=== PATIENT | female | born 1985 | race Caucasian/White ===

== ENCOUNTER 2022-12-29 12:17 | Outpatient (CLI) | payer OTHER, SELFPAY | END 2022-12-29 12:18 | disposition home or self-care (01) | LOC: LKVREF 12:19 | PROVIDERS: PCP Physician Assistant Medical; Visit Provider Physician Assistant Medical | DX: F98.8 Other specified behavioral and emotional disorders with onset usually occurring in childhood and adolescence (principal); R79.89 Other specified abnormal findings of blood chemistry | CPT/HCPCS: 80306 ==

== ENCOUNTER 2023-06-06 10:20 | Outpatient (CLI) | payer OTHER, SELFPAY | END 2023-06-06 10:21 | disposition home or self-care (01) | LOC: LKVREF 10:21 | PROVIDERS: PCP Physician Assistant Medical; Visit Provider Physician Assistant Medical | DX: Z01.818 Encounter for other preprocedural examination (principal) | CPT/HCPCS: 80048 ==

== ENCOUNTER 2024-07-19 10:19 | Outpatient (CLI) | payer BC, SELFPAY ==
--- OUTSIDE RECORDS SUMMARY | 2024-07-19 10:21 | XMS_ITS | Encounter Summary ---
Author Organization [facility] Address [address] [place] [id number] Care Team Providers Care Oncology Pharmacist Name Role Phone Jocelyne Alvarado Primary Care Provider [phone] Encounter Details Date Type Department Care Team (Latest Contact Info) Description 05/23/2024 Travel Social History Tobacco Use Types Packs/Day Years Used Date Smoking Tobacco: Never Smokeless Tobacco: Never Alcohol Use Standard Drinks/Week Comments Yes 0 (1 standard drink = 0.6 oz pur e alcohol) socially Comments No Sex and Gender Information Value Date Recorded Sex Assigned at Not on file Legal Sex Female 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
--- OUTSIDE RECORDS SUMMARY | 2024-07-19 10:21 | XMS_ITS | Clinical Summary ---
Author Organization [facility] Address [address] [place] [id number] Care Team Providers Care Gluing Pressman Name Role Phone Jocelyne Alvarado Primary Care Provider [phone] Allergies Active Allergy Reactions Criticality Noted Date Comments Cytarabine Anaphylaxis High 07/19/2006 Cefaclor Rash Low 07/19/2006 Medications ibuprofen (ADVIL,MOTRIN) 800 MG tabletIndicatio ns:Spontaneous vaginal delivery Take 1 tablet by mouth every 8 hours as needed for pain. 30 tablet 1 2 Active Additional Information Patient not taking.Reported on 10/25/2017 methylphenidate ER (CONCERTA) 54 MG CR tablet Take by mouth daily Active Active Problems Problem Noted Date Diagnosed Date Labor and delivery indication for care or interv ention 07/05/2012 CARDIOVASCULAR SCREENING; LDL GOAL LESS THAN 160 04/27/2011 Personal history of lymphoma 04/27/2011 Overview (04/27/2011): Burkitt's lymphoma treated age 15 Encounters Date Type Department Care Team Description 06/01/2024 Telephone [facility] [address], [address] [place] [address] Sarah Preciado RN Breast Biopsy Results 05/31/2024 8:15 AM CDT - 05/31/2024 11:59 PM CDT Hospital Encounter [facility] [address], [address] [place] [address] Natalie Doty MD History of Burkitt's lymphoma; History of leukemia; Dense breast tissue Discharge Disposition: Home or Self Care 05/31/2024 8:14 AM CDT Hospital Encounter [facility] [address] [place] [address] Natalie Doty MD History of Burkitt's lymphoma; History of leukemia; Dense breast tissue Discharge Disposition: Home or Self Care 05/31/2024 8:14 AM CDT Hospital Encounter [facility] [address] [place] [address] Natalie Doty MD History of Burkitt's lymphoma; History of leukemia; Dense breast tissue Discharge Disposition: Home or Self Care 05/31/2024 8:13 AM CDT Hospital Encounter [facility] [address] [place] [address] Natalie Doty MD History of Burkitt's lymphoma; History of leukemia; Dense breast tissue Discharge Disposition: Home or Self Care 05/31/2024 Travel 05/23/2024 1:58 PM CDT - 05/23/2024 11:59 PM CDT Hospital Encounter [facility] [address] [place] [address] Natalie Doty MD History of Burkitt's lymphoma; History of leukemia; Dense breast tissue Discharge Disposition: Home or Self Care 05/23/2024 1:53 PM CDT - 05/23/2024 1:57 PM CDT Hospital Encounter [facility] [address] [place] [address] Natalie Doty MD History of Burkitt's lymphoma; History of leukemia; Dense breast tissue Discharge Disposition: Home or Self Care 05/23/2024 Travel from Last 3 Months Immunizations Name Administration Dates Next Due Influenza (IIV3) PF 07/07/2012 Rhogam 07/06/2012 TDAP (Adacel,Boostrix) 04/29/2010 TDAP Vaccine (Adacel) 07/06/2012 Family History Medical History Relation Comments Cancer Maternal Grandfather Hypertension Maternal Grandfather Lipids Maternal Grandfather Cancer Maternal Grandmother Hypertension Maternal Grandmother Lipids Maternal Grandmother Heart Disease Paternal Grandfather pacemaker Relation Status Comments Father Alive Maternal Grandfather Maternal Grandmother Mother Paternal Grandfather Alive Paternal Grandmother Alive Social History Tobacco Use Types Packs/Day Years Used Date Smoking Tobacco: Never Smokeless Tobacco: Never Tobacco Cessation:Counseling Given: Yes Alcohol Use Standard Drinks/Week Comments Yes 0 (1 standard drink = 0.6 oz pur e alcohol) socially Comments No Sex and Gender Information Value Date Recorded Sex Assigned at Not on file Legal Sex Female 4:44 AM SECURITY SYSTEMS ADMINISTRATOR Gender Identity Not on file Sexual Orientation Not on file Last Filed Vital Signs Vital Sign Reading Time Taken Comments Blood Pressure 122/64 10/25/2017 11:04 AM SECURITY SYSTEMS ADMINISTRATOR Pulse 91 10/25/2017 11:04 AM SECURITY SYSTEMS ADMINISTRATOR Temperature 36.5 ??C (97.7 ??F) 10/09/2017 5:54 PM CS T Respiratory Rate 16 10/25/2017 11:04 AM SECURITY SYSTEMS ADMINISTRATOR Oxygen Saturation 98% 10/25/2017 11:04 AM SECURITY SYSTEMS ADMINISTRATOR Inhaled Oxygen Concentration - - Weight 67.1 kg (148 lb) 10/25/2017 11:04 AM SECURITY SYSTEMS ADMINISTRATOR pt reported Height 167.6 cm (5' 6) 10/25/2017 11:04 AM SECURITY SYSTEMS ADMINISTRATOR pt reported Body Mass Index 23.89 10/25/2017 11:04 AM SECURITY SYSTEMS ADMINISTRATOR Plan of Treatment Health Maintenance Due Date Last Done Comments ADVANCE CARE PLANNING 1984 ANNUAL REVIEW OF HM ORDERS 1984 YEARLY PREVENTIVE VISIT 1984 HEPATITIS C SCREENING 02/03/2002 HEPATITIS B IMMUNIZATION (1 of 3 - 19+ 3-dose series) 02/03/2003 PAP 02/03/2005 GLUCOSE 10/09/2020 10/09/2017, 08/19, 08/13/2012, Additional history exists DTAP/TDAP/TD IMMUNIZATION (3 - Td or Tdap) 07/06/2022 07/06/2012, 04/29/2010, 04/29/2010 PHQ-2 (once per calendar year) 2023 LIPID 2024 COVID-19 Vaccine ( season) 2024 INFLUENZA VACCINE (#1) 2024 4, 07/07/2012, 06/19/2012, Additional history exists MAMMO SCREENING 05/23/2026 05/23/2024 RSV VACCINE (1 - 1-dose 75+ series) 02/03/2059 HIV SCREENING Completed 12/08/2011 HPV IMMUNIZATION Aged Out No longer e ligible based on patient's age to complete this topic MENINGITIS IMMUNIZATION Aged Out No l onger eligible based on patient's age to complete this topic Pneumococcal Vaccine: Pediatrics (0 to 5 Years) and At-Risk Patients (6 to 64 Years) Aged Out No longer eligible based on patient's age to complete this topic RSV MONOCLONAL ANTIBODY Aged Out No l onger eligible based on patient's age to complete this topic Procedures Procedure Name Priority Date/Time Associated Diagnosis Comments MA POST PROCEDURE LEFT Routine 05/31/2024 9:28 AM CDT History of Burkitt's lymphoma History of leukemia Dense breast tissue MA POST PROCEDURE RIGHT Routine 05/31/2024 9:27 AM CDT History of Burkitt's lymphoma History of leukemia Dense breast tissue US BREAST BIOPSY CORE NEEDLE LEFT Routine 05/31/2024 9:20 AM CDT History of Burkitt's lymphoma History of leukemia Dense breast tissue US BREAST BIOPSY CORE NEEDLE RIGHT Routine 05/31/2024 9:14 AM CDT History of Burkitt's lymphoma History of leukemia Dense breast tissue SURGICAL PATHOLOGY EXAM Routine 05/31/2024 9:00 AM CDT History of Burkitt's lymphoma History of leukemia Dense breast tissue US BREAST BILATERAL LIMITED 1-3 QUADRANTS Routine 05/23/2024 3:07 PM CDT History of Burkitt's lymphoma History of leukemia Dense breast tissue MA DIAGNOSTIC BILATERAL W/ YAIR Routine 05/23/2024 2:25 PM CDT History of Burkitt's lymphoma History of leukemia Dense breast tissue BASIC METABOLIC PANEL STAT 10/09/2017 10:00 AM SECURITY SYSTEMS ADMINISTRATOR HIV 1 AND 2 ANTIBODY (QUEST) Routine 12/08/2011 from Last 3 Months or Most Recently Relevant to Health Maintenance Results * MA Post Procedure Left (05/31/2024 9:28 AM CDT) Anatomical Region Laterality Modality Breast Left Mammography Addenda Addendum by Octavio Enrique MD on 06/01/2024 12:46 PM CDT Addendum for Pathology Results, 06/01/2024 12:46 PM: Biopsy was performed and initial report was dictated by Dr Enrique. Specimen A, 10:00 7 cm from the nipple on the LEFT: Sclerotic breast tissue with nodular sclerosing adenosis. Specimen B, 3:00 5 cm from the nipple on the RIGHT: Fibroadenoma. Please see full pathology report for further details. Results are concordant with imaging findings. Recommendation: Routine annual mammography. OCTAVIO ENRIQUE MD Impressions 05/31/2024 9:37 AM CDT IMPRESSION: ?Uncomplicated ultrasound guided core needle biopsies of the RIGHT and LEFT breasts. OCTAVIO ENRIQUE MD Narrative 05/31/2024 9:37 AM CDT Ultrasound guided RIGHT and LEFT breast biopsies. Comparisons: 05/23/2024 FINDINGS: Procedure, risks, benefits and alternatives were discussed with the patient and the patient gave written and verbal consent. Aseptic technique was utilized. 1% lidocaine was utilized for local anesthesia. Under ultrasound guidance, biopsies of masses were performed and markers placed as follows and images were archived: Specimen 1: Size: 14 gauge core needle biopsy system Number of cores: 3 Position: 10:00 7 cm from the nipple on the LEFT Marker: HydroMark T3, shaped like a coil with open ends. Specimen 2: Size: 14 gauge core needle biopsy system Number of cores: 4 Position: 3:00 5 cm from the nipple on the RIGHT Marker: HydroMark T4, shaped like a coil with looped ends. Less than 5 mL blood loss. Pressure was held over this area for approximately 10 minutes. A dressing was placed and care instructions were discussed with the patient. Post biopsy mammograms demonstrates clip deployment on both sides. Procedure Note Octavio Enrique MD - 05/31/2024 Ultrasound guided RIGHT and LEFT breast biopsies. Comparisons: 05/23/2024 FINDINGS: Procedure, risks, benefits and alternatives were discussed with the patient and the patient gave written and verbal consent. Aseptic technique was utilized. 1% lidocaine was utilized for local anesthesia. Under ultrasound guidance, biopsies of masses were performed and markers placed as follows and images were archived: Specimen 1: Size: 14 gauge core needle biopsy system Number of cores: 3 Position: 10:00 7 cm from the nipple on the LEFT Marker: HydroMark T3, shaped like a coil with open ends. Specimen 2: Size: 14 gauge core needle biopsy system Number of cores: 4 Position: 3:00 5 cm from the nipple on the RIGHT Marker: HydroMark T4, shaped like a coil with looped ends. Less than 5 mL blood loss. Pressure was held over this area for approximately 10 minutes. A dressing was placed and care instructions were discussed with the patient. Post biopsy mammograms demonstrates clip deployment on both sides. IMPRESSION: Uncomplicated ultrasound guided core needle biopsies of the RIGHT and LEFT breasts. OCTAVIO ENRIQUE MD Natalie Vines MD IMG MAMMOGRAPH Y ORDERABLES Edited Result - Final * MA Post Procedure Right (05/31/2024 9:27 AM CDT) Anatomical Region Laterality Modality Breast Right Mammography Addenda Addendum by Octavio Enrique MD on 06/01/2024 12:46 PM CDT Addendum for Pathology Results, 06/01/2024 12:46 PM: Biopsy was performed and initial report was dictated by Dr Enrique. Specimen A, 10:00 7 cm from the nipple on the LEFT: Sclerotic breast tissue with nodular sclerosing adenosis. Specimen B, 3:00 5 cm from the nipple on the RIGHT: Fibroadenoma. Please see full pathology report for further details. Results are concordant with imaging findings. Recommendation: Routine annual mammography. OCTAVIO ENRIQUE MD Impressions 05/31/2024 9:37 AM CDT IMPRESSION: ?Uncomplicated ultrasound guided core needle biopsies of the RIGHT and LEFT breasts. OCTAVIO ENRIQUE MD Narrative 05/31/2024 9:37 AM CDT Ultrasound guided RIGHT and LEFT breast biopsies. Comparisons: 05/23/2024 FINDINGS: Procedure, risks, benefits and alternatives were discussed with the patient and the patient gave written and verbal consent. Aseptic technique was utilized. 1% lidocaine was utilized for local anesthesia. Under ultrasound guidance, biopsies of masses were performed and markers placed as follows and images were archived: Specimen 1: Size: 14 gauge core needle biopsy system Number of cores: 3 Position: 10:00 7 cm from the nipple on the LEFT Marker: HydroMark T3, shaped like a coil with open ends. Specimen 2: Size: 14 gauge core needle biopsy system Number of cores: 4 Position: 3:00 5 cm from the nipple on the RIGHT Marker: HydroMark T4, shaped like a coil with looped ends. Less than 5 mL blood loss. Pressure was held over this area for approximately 10 minutes. A dressing was placed and care instructions were discussed with the patient. Post biopsy mammograms demonstrates clip deployment on both sides. Procedure Note Octavio Enrique MD - 05/31/2024 Ultrasound guided RIGHT and LEFT breast biopsies. Comparisons: 05/23/2024 FINDINGS: Procedure, risks, benefits and alternatives were discussed with the patient and the patient gave written and verbal consent. Aseptic technique was utilized. 1% lidocaine was utilized for local anesthesia. Under ultrasound guidance, biopsies of masses were performed and markers placed as follows and images were archived: Specimen 1: Size: 14 gauge core needle biopsy system Number of cores: 3 Position: 10:00 7 cm from the nipple on the LEFT Marker: HydroMark T3, shaped like a coil with open ends. Specimen 2: Size: 14 gauge core needle biopsy system Number of cores: 4 Position: 3:00 5 cm from the nipple on the RIGHT Marker: HydroMark T4, shaped like a coil with looped ends. Less than 5 mL blood loss. Pressure was held over this area for approximately 10 minutes. A dressing was placed and care instructions were discussed with the patient. Post biopsy mammograms demonstrates clip deployment on both sides. IMPRESSION: Uncomplicated ultrasound guided core needle biopsies of the RIGHT and LEFT breasts. OCTAVIO ENRIQUE MD Natalie Vines MD IMG MAMMOGRAPH Y ORDERABLES Edited Result - Final * US Breast Biopsy Core Needle Left (05/31/2024 9:20 AM CDT) Anatomical Region Laterality Modality Breast Left Ultrasound Addenda Addendum by Octavio Enrique MD on 06/01/2024 12:46 PM CDT Addendum for Pathology Results, 06/01/2024 12:46 PM: Biopsy was performed and initial report was dictated by Dr Enrique. Specimen A, 10:00 7 cm from the nipple on the LEFT: Sclerotic breast tissue with nodular sclerosing adenosis. Specimen B, 3:00 5 cm from the nipple on the RIGHT: Fibroadenoma. Please see full pathology report for further details. Results are concordant with imaging findings. Recommendation: Routine annual mammography. OCTAVIO ENRIQUE MD Impressions 05/31/2024 9:37 AM CDT IMPRESSION: ?Uncomplicated ultrasound guided core needle biopsies of the RIGHT and LEFT breasts. OCTAVIO ENRIQUE MD Narrative 05/31/2024 9:37 AM CDT Ultrasound guided RIGHT and LEFT breast biopsies. Comparisons: 05/23/2024 FINDINGS: Procedure, risks, benefits and alternatives were discussed with the patient and the patient gave written and verbal consent. Aseptic technique was utilized. 1% lidocaine was utilized for local anesthesia. Under ultrasound guidance, biopsies of masses were performed and markers placed as follows and images were archived: Specimen 1: Size: 14 gauge core needle biopsy system Number of cores: 3 Position: 10:00 7 cm from the nipple on the LEFT Marker: HydroMark T3, shaped like a coil with open ends. Specimen 2: Size: 14 gauge core needle biopsy system Number of cores: 4 Position: 3:00 5 cm from the nipple on the RIGHT Marker: HydroMark T4, shaped like a coil with looped ends. Less than 5 mL blood loss. Pressure was held over this area for approximately 10 minutes. A dressing was placed and care instructions were discussed with the patient. Post biopsy mammograms demonstrates clip deployment on both sides. Procedure Note Octavio Enrique MD - 05/31/2024 Ultrasound guided RIGHT and LEFT breast biopsies. Comparisons: 05/23/2024 FINDINGS: Procedure, risks, benefits and alternatives were discussed with the patient and the patient gave written and verbal consent. Aseptic technique was utilized. 1% lidocaine was utilized for local anesthesia. Under ultrasound guidance, biopsies of masses were performed and markers placed as follows and images were archived: Specimen 1: Size: 14 gauge core needle biopsy system Number of cores: 3 Position: 10:00 7 cm from the nipple on the LEFT Marker: HydroMark T3, shaped like a coil with open ends. Specimen 2: Size: 14 gauge core needle biopsy system Number of cores: 4 Position: 3:00 5 cm from the nipple on the RIGHT Marker: HydroMark T4, shaped like a coil with looped ends. Less than 5 mL blood loss. Pressure was held over this area for approximately 10 minutes. A dressing was placed and care instructions were discussed with the patient. Post biopsy mammograms demonstrates clip deployment on both sides. IMPRESSION: Uncomplicated ultrasound guided core needle biopsies of the RIGHT and LEFT breasts. OCTAVIO ENRIQUE MD Natalie Vines MD [facility] US ORDERAB LES Edited Result - Final * US Breast Biopsy Core Needle Right (05/31/2024 9:14 AM CDT) Anatomical Region Laterality Modality Breast Right Ultrasound Addenda Addendum by Octavio Enrique MD on 06/01/2024 12:46 PM CDT Addendum for Pathology Results, 06/01/2024 12:46 PM: Biopsy was performed and initial report was dictated by Dr Enrique. Specimen A, 10:00 7 cm from the nipple on the LEFT: Sclerotic breast tissue with nodular sclerosing adenosis. Specimen B, 3:00 5 cm from the nipple on the RIGHT: Fibroadenoma. Please see full pathology report for further details. Results are concordant with imaging findings. Recommendation: Routine annual mammography. OCTAVIO ENRIQUE MD Impressions 05/31/2024 9:37 AM CDT IMPRESSION: ?Uncomplicated ultrasound guided core needle biopsies of the RIGHT and LEFT breasts. OCTAVIO ENRIQUE MD Narrative 05/31/2024 9:37 AM CDT Ultrasound guided RIGHT and LEFT breast biopsies. Comparisons: 05/23/2024 FINDINGS: Procedure, risks, benefits and alternatives were discussed with the patient and the patient gave written and verbal consent. Aseptic technique was utilized. 1% lidocaine was utilized for local anesthesia. Under ultrasound guidance, biopsies of masses were performed and markers placed as follows and images were archived: Specimen 1: Size: 14 gauge core needle biopsy system Number of cores: 3 Position: 10:00 7 cm from the nipple on the LEFT Marker: HydroMark T3, shaped like a coil with open ends. Specimen 2: Size: 14 gauge core needle biopsy system Number of cores: 4 Position: 3:00 5 cm from the nipple on the RIGHT Marker: HydroMark T4, shaped like a coil with looped ends. Less than 5 mL blood loss. Pressure was held over this area for approximately 10 minutes. A dressing was placed and care instructions were discussed with the patient. Post biopsy mammograms demonstrates clip deployment on both sides. Natalie Vines MD [facility] ORDERAB LES Edited Result - Final * Surgical Pathology Exam (05/31/2024 9:00 AM CDT) Case Report Surgical Pathology Report ? Case: [id number] ? Authorizing Provider: ??Natalie Doty ?Collected: ? 05/31/2024 09:00 AM ? MD Veronica ? Ordering Location: ? [facility] ?? Received: ?05/31/2024 09:33 AM ? [facility] ? Pathologist: ? Irene Bolaños MD ? Specimens: ?? A) - Breast, Left ? B) - Breast, Right ? 06/01/2024 12:33 PM CDT [facility] Final Diagnosis A. Breast, left, 10:00, 7.0 cm from nipple, 0.7 cm size, biopsy: -Sclerotic breast tissue with nodular sclerosing adenosis. B. Breast, right, 3:00, 5.0 cm from nipple, 1.1 cm size, biopsy: -Fibroadenoma. 06/01/2024 12:33 PM [facility] Gross Description A(1). Breast, Left, : The specimen is received in formalin, labeled with the patient's name, medical record number and other identifying information designated left breast, 10:00, 7.0 cm from nipple, 0.7 cm size. It consists of 3 fibrofatty cores, 0.9-1.1 cm. Wrapped and entirely submitted in 1 cassette. Time collected: 0900 Time in formalin: 0904 B(2). Breast, Right, : The specimen is received in formalin, labeled with the patient's name, medical record number and other identifying information designated right breast biopsy, 3:00, 5.0 cm from nipple, 1.1 cm size. It consists of 4 fibrofatty cores, 1.0-1.3 cm. Wrapped and entirely submitted in 1 cassette. Time collected: 905 Time in formalin: 09 (YUNIEL Ruiz) 05/31/2024 11:15 AM 06/01/2024 12:33 PM [facility] Microscopic Description Microscopic examination was performed. 06/01/2024 12:33 PM T LABORATORY Performing Labs The technical component of this testing was completed at [facility]. Stain controls for all stains resulted within this report have been reviewed and show appropriate reactivity. 06/01/2024 12:33 PM [facility] Case Images 06/01/2024 12:33 PM T LABORATORY Biopsy LEFT BREAST STRUCTURE / Unknown 05/31/2024 9:00 AM CDT 05/31/2024 9:33 AM CDT Comment:Left breast ultrasou nd core biopsy, 10:00, 7.0 cm from nipple, 0.7 cm size. Low suspicion. Performed by Dr. Octavio Enrique. Indication: left breast mass. Specimen from unspecified body site obtained by biopsy (specimen) RIGHT BREAST STRUCTURE / Unknown 05/31/2024 9:06 AM CDT 05/31/2024 9:33 AM CDT Comment:Right breast ultraso und core biopsy, 3:00, 5.0 cm from nipple, 1.1 cm size. Intermediate suspicion. Performed by Dr. Octavio Enrique. Indication: right breast mass. us Natalie Vines MD LAB - BEAKER A P Final Result LABORATORY [facility] [address] 1[address] floor, [address] [place] [address], [facility] [phone] LABORATORY [facility] [address] Lab (1st floor, no room number) [place] [address], [facility] * (ABNORMAL) US Breast Bilateral Limited 1-3 Quadrants (05/23/2024 3:07 PM CDT) Anatomical Region Laterality Modality Breast Bilateral Ultrasound Impressions 05/23/2024 3:16 PM CDT IMPRESSION: BI-RADS CATEGORY: 4 - Suspicious. ??Hypoechoic masses in the right breast at 3:00 and left breast at 10:00, as above. RECOMMENDED FOLLOW-UP: Biopsy. Histology using ultrasound-guided core needle biopsy with clip placement is recommended at both sites. The results and recommendation were communicated to the patient at the conclusion of today's appointment. DAVID TREVINO MD Narrative 05/23/2024 3:16 PM CDT DIAGNOSTIC MAMMOGRAM, BILATERAL, DIGITAL w/CAD AND TOMOSYNTHESIS - 05/23/2024 2:25 PM ULTRASOUND BILATERAL BREAST HISTORY: ?? Right breast lump. COMPARISON: ??None. BREAST DENSITY: There are scattered areas of fibroglandular density. FINDINGS: ??A marker was placed overlying the area of concern in the right breast, and an underlying oval circumscribed mass is seen. There are 2 similar-appearing oval circumscribed subcentimeter masses in the left upper breast at posterior depth. Targeted ultrasound evaluation of the right breast at 4:00 8 cm from the nipple at the site of palpable lump demonstrates no underlying sonographic abnormalities. Targeted ultrasound evaluation of the right breast at 3:00 5 cm from the nipple demonstrates an oval circumscribed hypoechoic mass measuring 1.1 x 0.7 x 1.0 cm, corresponding to the mammographic finding. Targeted ultrasound evaluation of the left breast at 10:00 7 cm from the nipple demonstrates a 7 mm hypoechoic circumscribed mass, likely corresponding to the larger mass seen mammographically. Natalie Vines MD [facility] US ORDERAB LES Edited * (ABNORMAL) MA Diagnostic Bilateral w/Yair (05/23/2024 2:25 PM CDT) Anatomical Region Laterality Modality Breast Bilateral Mammography Impressions 05/23/2024 3:16 PM CDT IMPRESSION: BI-RADS CATEGORY: 4 - Suspicious. ??Hypoechoic masses in the right breast at 3:00 and left breast at 10:00, as above. RECOMMENDED FOLLOW-UP: Biopsy. Histology using ultrasound-guided core needle biopsy with clip placement is recommended at both sites. The results and recommendation were communicated to the patient at the conclusion of today's appointment. DAVID TREVINO MD Narrative 05/23/2024 3:16 PM CDT DIAGNOSTIC MAMMOGRAM, BILATERAL, DIGITAL w/CAD AND TOMOSYNTHESIS - 05/23/2024 2:25 PM ULTRASOUND BILATERAL BREAST HISTORY: ?? Right breast lump. COMPARISON: ??None. BREAST DENSITY: There are scattered areas of fibroglandular density. FINDINGS: ??A marker was placed overlying the area of concern in the right breast, and an underlying oval circumscribed mass is seen. There are 2 similar-appearing oval circumscribed subcentimeter masses in the left upper breast at posterior depth. Targeted ultrasound evaluation of the right breast at 4:00 8 cm from the nipple at the site of palpable lump demonstrates no underlying sonographic abnormalities. Targeted ultrasound evaluation of the right breast at 3:00 5 cm from the nipple demonstrates an oval circumscribed hypoechoic mass measuring 1.1 x 0.7 x 1.0 cm, corresponding to the mammographic finding. Targeted ultrasound evaluation of the left breast at 10:00 7 cm from the nipple demonstrates a 7 mm hypoechoic circumscribed mass, likely corresponding to the larger mass seen mammographically. us Natalie Vines MD [facility] MAMMOGRAPH Y ORDERABLES Final Result * (ABNORMAL) Basic metabolic panel (BMP) (10/09/2017 10:00 AM SECURITY SYSTEMS ADMINISTRATOR) Sodium 138 133 - 144 mmol/L 10/09/2017 10:48 AM [facility] Potassium 3.5 3.4 - 5.3 mmol/L 10/09/2017 10:48 AM [facility] Chloride 105 94 - 109 mmol/L 10/09/2017 10:48 AM [facility] Carbon Dioxide 27 20 - 32 mmol/L 10/09/2017 10:48 AM [facility] Anion Gap 6 3 - 14 mmol/L 10/09/2017 10:48 AM [facility] Glucose 103(H) 70 - 99 mg/dL 10/09/2017 10:48 AM [facility] Urea Nitrogen 15 7 - 30 mg/dL 10/09/2017 10:48 AM [facility] Creatinine 0.80 0.52 - 1.04 mg/dL 10/09/2017 10:48 AM [facility] GFR Estimate 82 >60 mL/min/1.7 m2 10/09/2017 10:48 AM [facility] Comment:Non GFR Calc GFR Estimate If Black >90 >60 mL/min/1.7 m2 10/09/2017 10:48 AM [facility] Comment: GFR Calc Calcium 8.7 8.5 - 10.1 mg/dL 10/09/2017 10:48 AM [facility] Blood specimen (specimen) 10/09/2017 10:00 AM [facility] 10/09/2017 10:22 AM [facility] us Janak Vargas MD LAB - BLOOD ORDERABLES F inal Result [facility] [address]ando [place], [place] [address] [phone] * HIV 1 and 2 Antibody (12/08/2011) HIV-1 & HIV-2 Antibody [facility] HIV 1&2 Antibody negative [facility] Blood specimen (specimen) us Patient Reported LAB - BLOOD ORDERABLES Final Re sult [facility] from Last 3 Months or Most Recently Relevant to Health Maintenance Insurance BCBS OUT OF STATE BCBS OUT OF STATE Care Teams Gluing Pressman Relationship Specialty Start Date End Date Jocelyne Alvarado [facility] [address] [place] [address] PCP - General Nurse Practitioner 09/04/14
--- OUTSIDE RECORDS SUMMARY | 2024-07-19 10:21 | XMS_ITS | Encounter Summary ---
Author Organization [place] Address [address] [place] [address] Care Team Providers Care Cap And Hat Production Supervisor Name Role Phone Christiano Jocelyne Elmo Primary Care Provider [phone] Reason for Referral * Diagnostic Imaging Mammo (Routine) - Pending Review Specialty Diagnoses / Procedures Referred By Flex nolan Referred To Contact Radiology. Diagnoses History of Burkitt's lymphoma History of leukemia Dense breast tissue Procedures [place] [address] [place] [address] Phone: tel: fax: Referral ID Status Reason Start Date Expiration Date V isits Requested Visits Authorized [id number] Pending Review 05/23/2024 05/23/2025 1 1 Reason for Visit * Diagnostic Imaging Mammo (Routine) - Pending Review Specialty Diagnoses / Procedures Referred By Flex nolan Referred To Contact Radiology. Diagnoses History of Burkitt's lymphoma History of leukemia Dense breast tissue Procedures MA Post Procedure Right Natalie Doty MD [address] [place] [address] Phone: tel: fax: Referral ID Status Reason Start Date Expiration Date V isits Requested Visits Authorized [id number] Pending Review 05/23/2024 05/23/2025 1 1 Encounter Details Date Type Department Care Team (Latest Contact Info) Description 05/31/2024 8:14 AM CDT Hospital Encounter [facility] [address] [facility], [address] [place] [address] Natalie Doty MD [address] [place] [address] History of Burkitt's lymphoma; History of leukemia; Dense breast tissue Discharge Disposition: Home or Self Care Social History Tobacco Use Types Packs/Day Years Used Date Smoking Tobacco: Never Smokeless Tobacco: Never Alcohol Use Standard Drinks/Week Comments Yes 0 (1 standard drink = 0.6 oz pur e alcohol) socially Comments No Sex and Gender Information Value Date Recorded Sex Assigned at Not on file Legal Sex Female 4:44 AM CLINICAL INFORMATICS SPEC Gender Identity Not on file Sexual Orientation Not on file documented as of this encounter Medications at Time of Discharge ibuprofen (ADVIL,MOTRIN) 800 MG tabletIndications :Spontaneous vaginal delivery Take 1 tablet by mouth every 8 hours as needed for pain. 30 tablet 1 07/07/2012 methylphenidate ER (CONCERTA) 54 MG CR tablet Take by mouth daily documented as of this encounter Plan of Treatment Not on file documented as of this encounter Procedures Procedure Name Priority Date/Time Associated Diagnosis Comments MA POST PROCEDURE RIGHT Routine 05/31/2024 9:27 AM CDT History of Burkitt's lymphoma History of leukemia Dense breast tissue documented in this encounter Results * MA Post Procedure Right (05/31/2024 9:27 AM CDT) Anatomical Region Laterality Modality Breast Right Mammography Addenda Addendum by Amarilis Enrique MD on 06/01/2024 12:46 PM CDT [...] with imaging findings. Recommendation: Routine annual mammography. AMARILIS ENRIQUE MD Impressions 05/31/2024 9:37 AM CDT IMPRESSION: ?Uncomplicated ultrasound guided core needle biopsies of the RIGHT and LEFT breasts. AMARILIS ERNIQUE MD Narrative 05/31/2024 9:37 AM CDT Ultrasound [...] clip deployment on both sides. Procedure Note Amarilis Enrique MD - 05/31/2024 Ultrasound guided RIGHT [...] biopsies of the RIGHT and LEFT breasts. AMARILIS ENRIQUE MD Natalie Vines MD IMG MAMMOGRAPH Y ORDERABLES Edited Result - Final documented in this encounter Visit Diagnoses Diagnosis History of Burkitt's lymphoma Personal history of other lymphatic and hematopoietic neoplasm History of leukemia Personal history of unspecified leukemia Dense breast tissue documented in this encounter Care Teams Cap And Hat Production Supervisor Relationship Specialty Start Date End Date Jocelyne Alvarado [facility] [address] [place] [address] PCP - General Nurse Practitioner 09/04/14 documented as of this encounter
--- OUTSIDE RECORDS SUMMARY | 2024-07-19 10:21 | XMS_ITS | Encounter Summary ---
Author Organization [place] Address [address] [place] [address] Care Team Providers Care Environmental Health And Safety Leader Name Role Phone Christiano Jocelyne Elmo Primary Care Provider [phone] Reason for Referral * Diagnostic Imaging Mammo (Routine) - Pending Review Specialty Diagnoses / Procedures Referred By Flex nolan Referred To Contact Radiology. Diagnoses History of Burkitt's lymphoma History of leukemia Dense breast tissue Procedures MA Post Procedure Left Natalie Doty MD [address] [place] [address] Phone: tel: fax: Referral ID Status Reason Start Date Expiration Date V isits Requested Visits Authorized [id number] Pending Review 05/23/2024 05/23/2025 1 1 Reason for Visit * Diagnostic Imaging Mammo (Routine) - Pending Review Specialty Diagnoses / Procedures Referred By Flex nolan Referred To Contact Radiology. Diagnoses History of Burkitt's lymphoma History of leukemia Dense breast tissue Procedures [place] [address] [place] [address] Phone: tel: fax: Referral ID Status Reason Start Date Expiration Date V isits Requested Visits Authorized [id number] Pending Review 05/23/2024 05/23/2025 1 1 Encounter Details Date Type Department Care Team (Latest Contact Info) Description 05/31/2024 8:15 AM CDT - 05/31/2024 11:59 PM CDT Hospital Encounter [facility] [address], [address] [place] [address] Natalie Doty MD [address] [place] [address] History of Burkitt's lymphoma; History [...] on file Legal Sex Female 4:44 AM SYSTEM ADMINISTRATION MANAGER Gender Identity Not on file Sexual Orientation [...] this encounter Results * MA Post Procedure Left (05/31/2024 9:28 AM CDT) Anatomical Region Laterality Modality Breast Left Mammography Addenda Addendum by Amarilis Enrique MD [...] RIGHT and LEFT breasts. AMARILIS ENRIQUE MD Narrative 05/31/2024 9:37 AM CDT [...] tissue documented in this encounter Care Teams Environmental Health And Safety Leader Relationship Specialty Start Date End Date Jocelyne Alvarado [facility] [address] [place] [address] PCP - General Nurse Practitioner 09/04/14 documented as of this encounter
--- OUTSIDE RECORDS SUMMARY | 2024-07-19 10:21 | XMS_ITS | Clinical Summary ---
Author Organization [employer] Address [address] [place] [address] Care Team Providers Care Banquet Houseperson Name Role Phone Jocelyne Alvarado APRN, CNP Primary Care Provider Source Comments You are receiving this document as you are listed as the primary care provider,follow-up provider, or the patient has been referred to you for consultation.This is in compliance with the Medicare andMedicaid EHR Incentive Program,which states Providers who transition their patient to another setting of careor provider of care or refers their patient to another provider of care shouldprovide summary care record for each transition of care or referral. [facility] Allergies Active Allergy Reactions Criticality Noted Date Comments Cefaclor 12/08/2011 Cytarabine Anaphylaxis High 07/19/2006 Medications Medication Sig Dispensed Refills Start Date End Date Status methylphenidate 54 MG controlled release tablet Take 54 mg by mouth every morning. 01/31/2013 Active Levonorgestrel-Ethi nyl Estrad (AVIANE;ALESSE;LESS STEFANO) 0.1-20 MG-MCG tablet Take 1 tablet by mouth daily (every 24 hours). pT IS on cont therapy 112 tablet 3 05/17/2016 Active Probiotic Product (SUPER PROBIOTIC OR) Active atovaquone-proguani l (MALARONE) 250-100 MG tabletIndications:C ounseling for travel Take one tab daily. Start 2 days before malarial mosquito exposure, daily while there, and continue for 7 days after leaving. 21 Tablet 10/15/2019 Active azithromycin (ZITHROMAX) 500 MG tabletIndications:C ounseling for travel Take 1 tab daily for 3 days as needed for severe travelers diarrhea. 3 Tablet 10/15/2019 Active ibuprofen (MOTRIN) 800 MG tablet Take 800 mg by mouth. 07/07/2012 Active Active Problems Problem Noted Date Diagnosed Date Family hx-breast malignancy 12/31/2014 Family history of malignant neoplasm of ovary Resolved Problems Problem Noted Date Diagnosed Date Resolved Date History of macrosomia in inf ant in prior , currently 06/05/2012 08/23/2012 Encounter for supervision of normal in multigravida 12/08/2011 08/23/2012 Overview (05/11/2017): Supervision of normal subsequent Immunizations Name Administration Dates Next Due Flu Vac (3+ yrs) 07/07/2012,06/20/2001 Flu Vac Preserv Free (3+yrs) 07/22/2014 HepA Adult (19+ yrs) 10/15/2019 Influenza, Unspecified Formulation 06/19/2012 MMR 11/16/2019 Positive Rubella Titer 12/08/2011 Rho(D) - IG, IM 04/26/2012 Tdap 07/06/2012,04/29/2010 Typhoid (Typhim Vi, IM) 10/15/2019 YF (Yellow Fever) 10/15/2019 Family History Medical History Relation Name Comments Cancer Maternal Grandfather Cancer Maternal Grandmother Negative gene Esteban Naylor BRCA 1/2 and B ART Neg report from 01/03/2013, Relation Name Status Comments Father Alive Mother Brother Alive Maternal Grandfather Maternal Grandmother Esteban Naylor Other Paternal Grandfather Alive Paternal Grandmother Alive Sister Alive Social History Tobacco Use Types Packs/Day Years Used Date Smoking Tobacco: Never Smokeless Tobacco: Never Alcohol Use Standard Drinks/Week Comments No 0 (1 standard drink = 0.6 oz pur e alcohol) none Sex and Gender Information Value Date Recorded Sex Assigned at Not on file Gender Identity Not on file Sexual Orientation Not on file Last Filed Vital Signs Vital Sign Reading Time Taken Comments Blood Pressure 116/80 04/04/2019 11:04 AM CDT Pulse 80 04/04/2019 11:04 AM CDT Temperature - - Respiratory Rate - - Oxygen Saturation - - Inhaled Oxygen Concentration - - Weight 67.1 kg (148 lb) 04/04/2019 11:04 AM CDT Height 167.6 cm (5' 6) 04/04/2019 11:04 AM CDT Body Mass Index 23.89 04/04/2019 11:04 AM CDT Plan of Treatment Health Maintenance Due Date Last Done Comments Hep C Screening (Preventive Services) 1985 Mammogram 1985 Adult Preventive Visit 02/03/2002 HepB (1) 02/03/2003 Cervical Cancer Screening Due 01/01/2015 12/31/2014, 12/08/2011 MMR (2 of 2 - Risk 2-dose series) 12/14/2019 11/16/2019 HepA (2 of 2 - Risk 2-dose series) 04/14/2020 10/15/2019 DTaP/Tdap/Td (3 - Tdap) 07/06/2022 07/06/2012, 04/29 COVID-19 Vaccine ( season) 2024 Influenza (#1) 2024 07/22/2014, 06/19, 06/19/2012, Additional history exists Zoster/Shingles (1 of 2) 02/03/2034 HIV Screening (Preventive Services) Completed 12/08/2011 HPV Vaccine Aged Out No longer eligi ble based on patient's age to complete this topic Hib Aged Out No longer eligi ble based on patient's age to complete this topic IPV (Polio) Aged Out No longer eligi ble based on patient's age to complete this topic RSV Aged Out No longer eligi ble based on patient's age to complete this topic MCV4 Aged Out No longer eligi ble based on patient's age to complete this topic Pneumococcal Aged Out No longer eligi ble based on patient's age to complete this topic Procedures Procedure Name Priority Date/Time Associated Diagnosis Comments ANATOMICAL PATH LIQUID BASED Routine 12/31/2014 1:53 PM CDT HIV ANTIBODY Routine 12/08/2011 11:49 AM CDT Special screening examination for other specified viral diseases Screening examination for venereal disease from Last 3 Months or Most Recently Relevant to Health Maintenance Results * Pap Smear (12/31/2014 1:53 PM CDT) 12/31/2014 1:53 PM CDT Narrative HP CONVERSION - 01/03/2015 4:06 [place] [address] FINAL GYNECOLOGICAL CYTOLOGY REPORT Pathology #: [id number] ?Date Obtained: 12/31/2014 ? Date Received: 01/01/2015 INTERPRETATION/RESULTS: Negative for Intraepithelial Lesion or Malignancy. SPECIMEN ADEQUACY: Satisfactory for Evaluation. ??No endocervical cells/transformation zone component present. Verified on 01/03/2015 ??by SELMA PABLO(ASCP) (electronic signature) CLINICAL NOTES: ?Abnormal bleeding: No, LMP: 12/26/14, Hormonal TX: No LIQUID BASED PAP SMEAR SPECIMEN TYPE: ?CERVICAL WITH REFLEX TO HPV IF ASCUS PLEASE NOTE: The pap smear is a screening test designed to aid in the detection of cervical cancer and its precursor lesions. It is not a diagnostic procedure and should not be used as the sole means of detecting cervical cancer. Both false-positive and false-negative reports may occur. ? End of Report Transcriptions 10/28/2016 8:57 AM CSTNotes Recorded by Acacia Lamb APRN, CNP on 01/07/2015 at 6:00 PMPlease send normal pap letter. Acacia Lamb APRN, CNP LAB_1 HP CONVERSION * HIV ANTIBODY (12/08/2011 11:49 AM CDT) HIV 1/HIV 2 Non-React Non-Reacti ve HP CONVERSION 12/08/2011 11:4 9 AM CDT 12/08/2011 4:07 PM CDT Acacia J Pala ZINC MINER, E COMMERCE STRATEGIST LAB_1 HP CONVERSION from Last 3 Months or Most Recently Relevant to Health Maintenance Care Teams Banquet Houseperson Relationship Specialty Start Date End Date Jocelyne Alvarado APRN, E COMMERCE STRATEGIST [address] [place] [address] PCP - General 05/17/16
--- OUTSIDE RECORDS SUMMARY | 2024-07-19 10:21 | XMS_ITS | Encounter Summary ---
Author Organization [place] Address [address] [place] [address] Care Team Providers Care Braille Teacher Name Role Phone Christiano Jocelyne Elmo Primary Care Provider [phone] Reason for Referral * Diagnostic Imaging Ultrasound (Routine) - Closed Specialty Diagnoses / Procedures Referred By Flex nolan Referred To Contact Radiology. Diagnoses History of Burkitt's lymphoma History of leukemia Dense breast tissue Procedures US Breast [place] [address] [place] [address] Phone: tel: fax: [facility] [address] [facility], [address] [place] [address] Phone: tel: Referral ID Status Reason Start Date Expiration Date Visits Re quested Visits Authorized [id number] Closed 05/23/2024 05/23/2025 1 1 Reason for Visit * Diagnostic Imaging Ultrasound (Routine) - Closed Specialty Diagnoses / Procedures Referred By Flex nolan Referred To Contact Radiology. Diagnoses History of Burkitt's lymphoma History of leukemia Dense breast tissue Procedures US Breast Biopsy Core Needle Right Natalie Doty MD [address] [place] [address] Phone: tel: fax: [facility] [address], [address] [place] [address] Phone: tel: Referral ID Status Reason Start Date Expiration Date Visits Re quested Visits Authorized [id number] Closed 05/23/2024 05/23/2025 1 1 Encounter Details Date Type Department Care Team (Latest Contact Info) Description 05/31/2024 8:13 AM CDT Hospital Encounter [facility] [place] [address], [address] [place] [address] Natalie Doty MD [address] [place] [address] History of Burkitt's lymphoma; History of [...] on file Legal Sex Female 4:44 AM SYSTEMS MANAGER Gender Identity Not on file Sexual Orientation Not on file documented as of this encounter Discharge Instructions * Discharge Instructions* Sarah Preciado RN - 05/31/2024 9:51 AM CDT After Your Breast Biopsy Bleeding or bruising Slight bruising is normal. If you bleed through the bandage, put direct pressure on the breast for 10 minutes. If the breast begins to swell, or you have a lot of bleeding after 10 minutes of pressure, call thedoctor who ordered your exam. Or, go to the emergency room. Bandages Keep your bandage in place until tomorrow morning. Do not get it wet. If you have small pieces of tape on the skin, leave them in place. They will fall off on their own,or you can remove them after 5 days. Activity You may shower the morning after the exam. No heavy activity (lifting, vacuuming) on the day of your exam. You may go back to normal activity the next day, unless you had a lot of bleeding or pain. Discomfort You may take Tylenol (acetaminophen) today for pain. Tomorrow, you may take an anti-inflammatory medicine (aspirin, ibuprofen, Motrin, Aleve, Advil), unless your doctor tells you not to. Wear your bra overnight to support the breast. You may also use an ice pack: Place it over the areafor 15-20 minutes several times a day. Infection Infection is rare. Symptoms include fever, redness, increasing pain and fluid draining from the biopsy site. If you have any of these symptoms, please call the doctor who ordered your exam. Results Results may take up to 5 business days. A nurse or doctor from the Breast Center will call with your results. We will also send the results to the doctor who ordered your biopsy. If you have not heard your results in 5 days, please call the Breast Center. Other instructions Call your doctor if: You have bleeding that lasts more than 10 minutes. You have pain that cannot be controlled. You have signs of infection (fever, redness, drainage or other signs). You have not received your results within 5 days. Please call the [facility] nurse navigator at [phone] if you have questions or concerns about your biopsy. documented in this encounter Medications at Time of Discharge [...] Procedure Name Priority Date/Time Associated Diagnosis Comments US BREAST BIOPSY CORE NEEDLE RIGHT Routine 05/31/2024 9:14 AM CDT History of Burkitt's lymphoma History of leukemia Dense breast tissue SURGICAL PATHOLOGY EXAM Routine 05/31/2024 9:00 AM CDT History of Burkitt's lymphoma History of leukemia Dense breast tissue documented in this encounter Results * US Breast Biopsy Core Needle Right [...] mammograms demonstrates clip deployment on both sides. us Natalie Vines MD [facility] ORDERAB LES Edited Result - Final * Surgical Pathology Exam (05/31/2024 9:00 AM CDT) Case Report Surgical Pathology Report ? Case: [id number] ? Authorizing Provider: ??Natalie Doty ?Collected: ? 05/31/2024 09:00 AM ? MD Veronica ? Ordering Location: ? [facility] ?? Received: ?05/31/2024 09:33 AM ? [facility] Center ? Pathologist: ? Irene Bolaños MD ? Specimens: ?? A) - Breast, Left ? B) - Breast, Right ? 06/01/2024 12:33 PM [facility] Final Diagnosis A. Breast, left, 10:00, 7.0 cm from nipple, 0.7 cm size, biopsy: -Sclerotic breast tissue with nodular sclerosing adenosis. B. Breast, right, 3:00, 5.0 cm from nipple, 1.1 cm size, biopsy: -Fibroadenoma. 06/01/2024 12:33 PM [facility] Gross Description A(1). Breast, Left, : The specimen is received in formalin, labeled with the patient's name, medical record number and other identifying information designated left breast, 10:00, 7.0 cm from nipple, 0.7 cm size. It consists of 3 fibrofatty cores, 0.9-1.1 cm. Wrapped and entirely submitted in 1 cassette. Time collected: 899 Time in formalin: 09 B(2). Breast, Right, : The specimen is received in formalin, labeled with the patient's name, medical record number and other identifying information designated right breast biopsy, 3:00, 5.0 cm from nipple, 1.1 cm size. It consists of 4 fibrofatty cores, 1.0-1.3 cm. Wrapped and entirely submitted in 1 cassette. Time collected: 905 Time in formalin: 0910 (YUNIEL Ruiz) 05/31/2024 11:15 AM 06/01/2024 12:33 PM CDT LABORATORY Microscopic Description Microscopic examination was performed. 06/01/2024 12:33 PM CDT LABORATORY Performing Labs The technical component of this testing was completed at [facility]. Stain controls for all stains resulted within this report have been reviewed and show appropriate reactivity. 06/01/2024 12:33 PM CDT LABORATORY Case Images 06/01/2024 12:33 PM CDT LABORATORY Biopsy LEFT BREAST STRUCTURE / Unknown [...] - BEAKER A P Final Result LABORATORY [facility] [address], [address] [place] [address], [place] [phone] LABORATORY [facility] [address] [facility] (1st floor, no room number) [place] [address], [facility] documented in this encounter Visit Diagnoses Diagnosis History of Burkitt's lymphoma Personal history of other lymphatic and hematopoietic neoplasm History of leukemia Personal history of unspecified leukemia Dense breast tissue documented in this encounter Administered Medications Inactive Administered Medications - up to 3 most recent administrations Medication Order MAR Action Action Date Dose Rate Site lidocaine 1 % 10 mL 10 mL, Subcutaneous, ONCE, On Julianne 05/31/24 at 0900, For 1 doseIndications:Dense breast tissue $Given 05/31/2024 8:56 AM CDT 10 mLs documented in this encounter Care Teams Braille Teacher Relationship Specialty Start Date End Date Jocelyne Alvarado [facility] [address] [place] [address] PCP - General Nurse Practitioner 09/04/14 documented as of this encounter
--- OUTSIDE RECORDS SUMMARY | 2024-07-19 10:21 | XMS_ITS | Encounter Summary ---
Author Organization [facility] Address [address] [place] [address] Care Team Providers Care Farmworker Diversified Crops Name Role Phone Jocelyne Alvarado Primary Care Provider [phone] Reason for Visit * Reason Onset Date Comments Breast Biopsy Results 06/01/2024 Encounter Details Date Type Department Care Team (Late st Contact Info) Description 06/01/2024 Telephone [facility] 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 I phoned Ms Villalpando, confirmed her full name, date of , and informed patient of her ultrasound Guided bilateral Breast Needle Biopsy (05/31/24) results showing benign -Sclerotic breast tissue withnodular sclerosing adenosis. B. Breast, right, 3:00, 5.0 cm from nipple, 1.1 cm size, biopsy: -Fibroadenoma. Recommended follow up is routine screening. Patient states no problems or concerns with her biopsy site. Questions were answered and my phone number given if she has further questions or concerns. I informed patient I will notify the ordering provider of the results and recommendations for follow up. Patient verbalized understanding and agrees with the plan of care. Sarah Preciado RN CBCN Breast Care Nurse Coordinator [facility] [phone] documented in this encounter Plan of Treatment Not on file documented as of this encounter Visit Diagnoses Not on filedocumented in this encounter Care Teams Farmworker Diversified Crops Relationship Specialty Start Date End Date Jocelyne Alvarado [facility] [address] [place] [address] PCP - General Nurse Practitioner 09/04/14 documented as of this encounter
--- OUTSIDE RECORDS SUMMARY | 2024-07-19 10:21 | XMS_ITS | Encounter Summary ---
Author Organization [facility] Address [address] [place] [address] Care Team Providers Care Cuff Setter Overlock Name Role Phone Christiano Jocelyne Elmo Primary Care Provider [phone] Reason for Referral * Diagnostic Imaging Ultrasound (Routine) - Closed Specialty Diagnoses / Procedures Referred By Flex nolan Referred To Contact Radiology. Diagnoses History of Burkitt's lymphoma History of leukemia Dense breast tissue Procedures [place] Breast [place] [address] [place] [address] Phone: tel: fax: [facility] [address], [address] [place] [address] Phone: tel: Referral ID Status Reason Start Date Expiration Date Visits Re quested Visits Authorized [id number] Closed 05/23/2024 05/23/2025 1 1 Reason for Visit * Diagnostic Imaging Ultrasound (Routine) - Closed Specialty Diagnoses / Procedures Referred By Flex nolan Referred To Contact Radiology. Diagnoses History of Burkitt's lymphoma History of leukemia Dense breast tissue Procedures US Breast Biopsy Core Needle Left Natalie Doty MD [address] [place] [address] Phone: tel: fax: [facility] [address], [address] [place] [address] Phone: tel: Referral ID Status Reason Start Date Expiration Date Visits Re quested Visits Authorized [id number] Closed 05/23/2024 05/23/2025 1 1 Encounter Details Date Type Department Care Team (Latest Contact Info) Description 05/31/2024 8:14 AM CDT Hospital Encounter [facility] [address], [address] [place] [phone] [place] [address] [place] [address] History of Burkitt's lymphoma; History of [...] on file 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 AMARILIS ENRIQUE MD us Natalie Vines MD [facility] US ORDERAB LES Edited Result - Final documented in this encounter Visit Diagnoses Diagnosis History of Burkitt's lymphoma Personal history of other lymphatic and hematopoietic neoplasm History of leukemia Personal history of unspecified leukemia Dense breast tissue documented in this encounter Care Teams Cuff Setter Overlock Relationship Specialty Start Date End Date Jocelyne Alvarado [facility] [address] [place] [address] PCP - General Nurse Practitioner 09/04/14 documented as of this encounter
--- OUTSIDE RECORDS SUMMARY | 2024-07-19 10:21 | XMS_ITS | Referral Summary ---
Author Organization [facility] Address [address] [place] [address] Care Team Providers Care Process Control Technician Name Role Phone Jocelyne Alvarado Primary Care Provider Encounters Date Type Department Care Team Description 06/01/2024 Telephone [facility] [address] [place] [phone] Sarah Preciado RN Breast Biopsy Results 05/31/2024 Travel 05/31/2024 8:15 AM CDT - 05/31/2024 11:59 PM CDT Hospital Encounter [facility] [place] [address], [address] [place] [phone] Natalie Doty MD History of Burkitt's lymphoma; History of leukemia; Dense breast tissue Discharge Disposition: Home or Self Care 05/31/2024 8:14 AM CDT Hospital Encounter [facility] [place] [address], [address] [place] [address] Natalie Doty MD History of Burkitt's lymphoma; History of leukemia; Dense breast tissue Discharge Disposition: Home or Self Care 05/31/2024 8:14 AM CDT Hospital Encounter [facility] [place] [address], [address] [place] [phone] Natalie Doty MD History of Burkitt's lymphoma; History of leukemia; Dense breast tissue Discharge Disposition: Home or Self Care 05/31/2024 8:13 AM CDT Hospital Encounter [facility] [address], [address] [place] [address] Natalie Doty MD History of Burkitt's lymphoma; History of leukemia; Dense breast tissue Discharge Disposition: Home or Self Care 05/23/2024 Travel 05/23/2024 1:58 PM CDT - 05/23/2024 11:59 PM CDT Hospital Encounter [facility] [address] [place] [address] Natalie Doty MD History of Burkitt's lymphoma; History of leukemia; Dense breast tissue Discharge Disposition: Home or Self Care 05/23/2024 1:53 PM CDT - 05/23/2024 1:57 PM CDT Hospital Encounter [facility] [address] [place] [address] Natalie Doty MD History of Burkitt's lymphoma; History of leukemia; Dense breast tissue Discharge Disposition: Home or Self Care from Last 3 Months Allergies Active Allergy Reactions Criticality Noted Date [...] Overview (04/27/2011): Burkitt's lymphoma treated age 15 Immunizations Name Administration Dates Next Due Influenza (IIV3) PF 07/07/2012 Rhogam 07/06/2012 TDAP (Adacel,Boostrix) 04/29/2010 TDAP Vaccine (Adacel) 07/06/2012 Social History Tobacco Use Types Packs/Day Years Used Date Smoking Tobacco: Never Smokeless Tobacco: Never Tobacco Cessation:Counseling Given: Yes Alcohol Use Standard Drinks/Week Comments Yes 0 (1 standard drink = 0.6 oz pur e alcohol) socially Comments No Sex and Gender Information Value Date Recorded Sex Assigned at Not on file Legal Sex 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 Gender Identity Not on file Sexual Orientation Not on file Last Filed Vital Signs Vital Sign Reading Time Taken Comments Blood Pressure 122/64 10/25/2017 11:04 AM PLAYER DEVELOPMENT EXECUTIVE Pulse 91 10/25/2017 11:04 AM PLAYER DEVELOPMENT EXECUTIVE Temperature 36.5 ??C (97.7 ??F) 10/09/2017 5:54 PM CS T Respiratory Rate 16 10/25/2017 11:04 AM PLAYER DEVELOPMENT EXECUTIVE Oxygen Saturation 98% 10/25/2017 11:04 AM PLAYER DEVELOPMENT EXECUTIVE Inhaled Oxygen Concentration - - Weight 67.1 kg (148 lb) 10/25/2017 11:04 AM PLAYER DEVELOPMENT EXECUTIVE pt reported Height 167.6 cm (5' 6) 10/25/2017 11:04 AM PLAYER DEVELOPMENT EXECUTIVE pt reported Body Mass Index 23.89 10/25/2017 11:04 AM PLAYER DEVELOPMENT EXECUTIVE Plan of Treatment Not on file Procedures Procedure Name Priority Date/Time Associated Diagnosis [...] BASIC METABOLIC PANEL STAT 10/09/2017 10:00 AM PLAYER DEVELOPMENT EXECUTIVE HIV 1 AND 2 ANTIBODY (QUEST) Routine [...] breasts. OCTAVIO ENRIQUE MD Natalie Vines MD [facility] US ORDERAB LES Edited Result - Final [...] deployment on both sides. Natalie Vines MD [facility] US ORDERAB LES Edited Result - Final * Surgical Pathology Exam (05/31/2024 9:00 AM CDT) Case Report Surgical Pathology Report ? Case: [id number] ? Authorizing Provider: ??Natalie Doty ?Collected: ? 05/31/2024 09:00 AM ? Veronica, MD ? Ordering Location: ? [facility] ?? Received: ?05/31/2024 09:33 AM ? Breast Center ? Pathologist: ? Irene Bolaños, MD ? Specimens: ?? A) - Breast, Left ? B) - Breast, Right ? 06/01/2024 12:33 PM [facility] Final Diagnosis A. Breast, left, 10:00, 7.0 cm from nipple, 0.7 cm size, biopsy: -Sclerotic breast tissue with nodular sclerosing adenosis. B. Breast, right, 3:00, 5.0 cm from nipple, 1.1 cm size, biopsy: -Fibroadenoma. 06/01/2024 12:33 PM [facility] Gross Description A(1). Breast, Left, : [...] entirely submitted in 1 cassette. Time collected: 09 Time in formalin: 0910 (YUNIEL Ruiz) 05/31/2024 11:15 AM 06/01/2024 12:33 PM [facility] Microscopic Description Microscopic examination was performed. 06/01/2024 12:33 PM [facility] Performing Labs The technical component of this testing was completed at [facility]. Stain controls for all stains resulted within this report have been reviewed and show appropriate reactivity. 06/01/2024 12:33 PM [facility] Case Images 06/01/2024 12:33 PM [facility] Biopsy LEFT BREAST STRUCTURE / Unknown [...] - BEAKER A P Final Result LABORATORY [facility] [address] floor, [address] [place] [address], [facility] [phone] LABORATORY [facility] Acute Care Lab [address] (1st floor, no room number) [place] [address] * (ABNORMAL) US Breast Bilateral Limited 1-3 [...] mass seen mammographically. us Natalie Vines MD IMG US ORDERAB LES Edited * (ABNORMAL) MA [...] the larger mass seen mammographically. us Natalie Vnies MD IMG MAMMOGRAPH Y ORDERABLES Final Result * (ABNORMAL) Basic metabolic panel (BMP) (10/09/2017 10:00 AM PLAYER DEVELOPMENT EXECUTIVE) Sodium 138 133 - 144 mmol/L 10/09/2017 10:48 AM [facility] Potassium 3.5 3.4 - 5.3 mmol/L 10/09/2017 10:48 AM [facility] Chloride 105 94 - 109 mmol/L 10/09/2017 10:48 AM [facility] Carbon Dioxide 27 20 - 32 mmol/L 10/09/2017 10:48 AM [facility] Anion Gap 6 3 - 14 mmol/L 10/09/2017 10:48 AM [facility] Glucose 103(H) 70 - 99 mg/dL 10/09/2017 10:48 AM [facility] Urea Nitrogen 15 7 - 30 mg/dL 10/09/2017 10:48 AM [facility] Creatinine 0.80 0.52 - 1.04 mg/dL 10/09/2017 10:48 AM [facility] GFR Estimate 82 >60 mL/min/1.7 m2 10/09/2017 10:48 AM [facility] Comment:Non GFR Calc GFR Estimate If Black >90 >60 mL/min/1.7 m2 10/09/2017 10:48 AM [facility] Comment: GFR Calc Calcium 8.7 8.5 - 10.1 mg/dL 10/09/2017 10:48 AM [facility] Blood specimen (specimen) 10/09/2017 10:00 AM PLAYER DEVELOPMENT EXECUTIVE 10/09/2017 10:22 AM [facility] us Janak Vargas MD LAB - BLOOD ORDERABLES F inal Result [facility] [address] [place] [address], [facility] [phone] * HIV 1 and 2 Antibody (12/08/2011) HIV-1 & HIV-2 Antibody [facility] HIV 1&2 Antibody negative [facility] Blood specimen (specimen) us Patient Reported LAB - BLOOD ORDERABLES Final Re sult [facility] from Last 3 Months or Most Recently Relevant to Health Maintenance Insurance BCBS OUT OF STATE BCBS OUT OF STATE Care Teams Process Control Technician Relationship Specialty Start Date End Date Jocelyne Alvarado [facility] [address] [place] [address] PCP - General Nurse Practitioner 09/04/14
--- OUTSIDE RECORDS SUMMARY | 2024-07-19 10:21 | XMS_ITS | Encounter Summary ---
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
--- OUTSIDE RECORDS SUMMARY | 2024-07-19 10:22 | XMS_ITS | Encounter Summary ---
Author Organization [facility] Address [address] [place] [address] Care Team Providers Care General Medical Practitioner Name Role Phone Jocelyne Alvarado Elmo Primary Care Provider [phone] Reason for Referral * Diagnostic Imaging Ultrasound (Routine) - Pending Review Specialty Diagnoses / Procedures Referred By Flex nolan Referred To Contact Radiology. Diagnoses History of Burkitt's lymphoma History of leukemia Dense breast tissue Procedures US Breast Bilateral Limited 1-3 Quadrants Natalie Doty MD [address] [place] [address] Phone: tel: fax: Referral ID Status Reason Start Date Expiration Date V isits Requested Visits Authorized [id number] Pending Review 05/14/2024 05/14/2025 1 1 Reason for Visit * Diagnostic Imaging Ultrasound (Routine) - Pending Review Specialty Diagnoses / Procedures Referred By Flex nolan Referred To Contact Radiology. Diagnoses History of Burkitt's lymphoma History of leukemia Dense breast tissue Procedures US Breast Bilateral Limited 1-[place] [address] [place] [address] Phone: tel: fax: Referral ID Status Reason Start Date Expiration Date V isits Requested Visits Authorized [id number] Pending Review 05/14/2024 05/14/2025 1 1 Encounter Details Date Type Department Care Team (Latest Contact Info) Description 05/23/2024 1:58 PM CDT - 05/23/2024 11:59 PM CDT Hospital Encounter [facility] [address] [place] [address] Natalie Doty MD [address] [place] [address] History of Burkitt's lymphoma; History [...] on file 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 Gender Identity Not on file Sexual Orientation [...] Priority Date/Time Associated Diagnosis Comments US BREAST BILATERAL LIMITED 1-3 QUADRANTS Routine 05/23/2024 3:07 PM CDT History of Burkitt's lymphoma History of leukemia Dense breast tissue documented in this encounter Results * (ABNORMAL) US Breast Bilateral Limited 1-3 [...] Vines MD IMG US ORDERAB LES Edited documented in this encounter Visit Diagnoses Diagnosis History of Burkitt's lymphoma Personal history of other lymphatic and hematopoietic neoplasm History of leukemia Personal history of unspecified leukemia Dense breast tissue documented in this encounter Care Teams General Medical Practitioner Relationship Specialty Start Date End Date Jocelyne Alvarado [facility] [address] [place] [address] PCP - General Nurse Practitioner 09/04/14 documented as of this encounter
--- OUTSIDE RECORDS SUMMARY | 2024-07-19 10:22 | XMS_ITS | Encounter Summary ---
Author Organization [place] Address Critical access hospital0 [facility] [place] [address] Care Team Providers Care Shrimp Boat Captain Name Role Phone Eitan Vuong MD Primary Care Provider + [phone] No Ref-Primary, Physician Primary Care Provider Jocelyne Alvarado Primary Care Provider [phone] Encounter Details Date Type Department Care Team (Late st Contact Info) Description 08/25/2007 Office Visit-[facility] [address] [place] [address] Ashley Santana DO [address] [facility] [address] [place], [place] [id number] Social History Tobacco Use Types Packs/Day Years Used Date Smoking Tobacco: Never Alcohol Use Standard Drinks/Week Comments Not Asked 0 (1 standard drink = 0.6 oz pur e alcohol) Comments No Sex and Gender Information Value Date Recorded Sex Assigned at Not on file 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 [id number] DATE: 08/25/2007 RAMO MAR DATE OF : 1985 AGE: [age] years old Referring Physician: LISANDRO JESUS Referring Clinic: [facility] CURRENT DIAGNOSES 1. Cardiomyopathy Iatrogenic, 425.4 ALLERGIES YAW-C ceclor MEDICATIONS (prior to changes made today) 1. No Medications -, Take as Directed CHIEF COMPLAINTS Per MD - follow up HISTORY OF PRESENT ILLNESS Ms. Mar is a very pleasant 22-year-old female who is accompanied by her today in the clinic for follow up. Since her last visit back in April, she has had a successful delivery of a baby boy. He was premature by three weeks. She had no complications during her delivery. She is essentially asymptomatic with any cardiac related issues. 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 She had some cardiac toxicity related to this and had been seen down at [facility]. Unfortunately, I still have not received the records of her transthoracic echocardiogram or visits down at [facility]. 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 We did do a transthoracic echocardiogram back in April on her. Her LV ejection fraction was estimated to be between 45% and 50%. A repeat transthoracic echocardiogram was performed t agnieszka prior to her office visit. Her LV function actually looks improved. Ejection fraction is more in the range of 55% to 60% without any other structural abnormalities. She has been doing quite well. She had questions regarding whether she can continue with an exercise program and go back to normal activity. I do not have any problems with any physical activity that she chooses to do. I do not have any restrictions for her. Her blood pressure in the office today was 120/70. Her pulse was 80 and regular. PAST HISTORY Past Medical Illnesses: anemia, 2000 Burkitt's lymphoma/leukemia (chemo therapy 2000-) Past Cardiac Illnesses: adriamycin induced cardiomyopathy 6 yrs ago, Hx of abnormal echo Surgical Procedures: tonsil and adenoidectomy, thoracotomy, J-tube placement, Wilson catheter placement Cardiology Procedures-Noninvasive: 04/25 echocardiogram Left Ventricular Ejection Fraction: 04/25 EF 45-50 % per echo PMHx Echo Results: 04/25 Mild global hypokinesis FAMILY HISTORY: Father - alive and well; Mother - Age 52, and ramesh gehrig's disease; Brother 1 - alive and well; Sister 1 - alive and well; CARDIAC RISK FACTORS Tobacco Abuse: negative; Family History of Heart Disease: negative; Hyperlipidemia: negative; Hypertension: negative; Diabetes Mellitus: negative; Prior History of Heart Disease: negative; Obesity:negative; Sedentary Life Style:negative; Age:negative ; LDL Goal <LT> 130 SOCIAL HISTORY Alcohol Use - denies drinking; Smoking - denies tobacco use; Diet - regular diet without modifications; Exercise - 3 days per week, 5 days per week, swimming, walking, of mild intensity and of moderate intensity; Seat Belt Use - always; Residence - lives with ; Place of - [place];Spouse's Occupation - student; REVIEW OF SYSTEMS GENERAL weight loss INTEGUMENTARY denies any change in hair or nails, rashes, or skin lesions. EYES wears eye glasses/contact lenses, recent rx EARS, NOSE, THROAT, MOUTH denies any hearing loss, epistaxis, hoarseness or difficulty speaking. RESPIRATORY denies dyspnea, snoring, cough, wheezing or hemoptysis. CARDIOVASCULAR negative for palpitations, chest pain, orthopnea, PND, peripheral edema, syncope or claudication. ABDOMINAL denies change in bowel habits, dyspepsia, ulcer disease, hematochezia or melena. MUSCULOSKELETAL denies any history of arthritic symptoms or back problems. NEUROLOGICAL recent onset headaches PSYCHIATRIC denies any history of depression, substance abuse or change in cognitive functions. ENDOCRINE Burkitts' lymphoma/leukemia-2000, remission HEMATOLOGICAL/IMMUNOLOGIC medication allergies PHYSICAL EXAMINATION VITAL SIGNS: Blood Pressure: 120/70 Sitting, Left arm, large cuff Pulse- 80.00/min. Weight- 185.00 lbs. Height- 65.00 Temperature- .00 CONSTITUTIONAL cooperative, alert and oriented,well developed, well nourished, in no acute distress. SKIN warm and dry to touch, no apparent skin lesions, or masses noted. HEAD normocephalic, atraumatic EYES Pupils equal and round, conjunctivae and lids unremarkable, sclera white, no xanthalasma ENT no pallor or cyanosis, dentition good NECK carotid pulses are full and equal bilaterally, JVP normal, no carotid bruit, no thyromegaly CHEST normal symmetry, no tenderness to palpation, normal respiratory excursion, no intercostal retraction, no use of accessory muscles, clear to auscultation and percussion. CARDIAC regular rhythm, S1 normal, S2 normal, No S3 or S4, Apical impulse not displaced, no murmurs, gallops or rubs detected. PERIPHERAL PULSES pulses full and equal in all extremities, no bruits auscultated. EXTREMITIES & BACK no cyanosis present, no clubbing present, mild edema to ankles NEUROLOGICAL no gross motor deficits noted, affect appropriate, oriented to time, person and place. MEDICATIONS UPDATED/STARTED TODAY: No Medications -, Take as Directed, DIRECTED IMPRESSION/PLAN In summary, Ms. 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 Her transthoracic echocardiogram today demonstrates that she has continued improved function of her left ventricle, which is essentially normal now. I do not have any further recommendations for her at this time. I do not have any restrictions for her as well. At this point, she can be discharged from this office unless she has any further problems or questions regarding her heart. I would like her to continue to follow with her primary care as always. Please feel free to contact me with any questions regarding her care. Nelsy Santana D.O. documented in this encounter Plan of Treatment Not on file documented as of this encounter Visit Diagnoses Not on filedocumented in this encounter Care Teams Shrimp Boat Captain Relationship Specialty Start Date End Date Eitan Vuong MD PCP - General Family Practice 04/27/11 08/12/12 No Ref-Primary, Physician PCP - General 08/13/12 09/03/14 Jocelyne Alvarado [facility] [address] [address] PCP - General Nurse Practitioner 09/04/14 documented as of this encounter
--- OUTSIDE RECORDS SUMMARY | 2024-07-19 10:22 | XMS_ITS | Encounter Summary ---
Author Organization [place] Address [address] [place] [address] Care Team Providers Care Concert Promoter Name Role Phone Eitan Vuong MD Primary Care Provider [phone] No Ref-Primary, Physician Primary Care Provider Jocelyne Alvarado Primary Care Provider [phone] Encounter Details Date Type Department Care Team (Late st Contact Info) Description 04/25/2007 Office Visit-[facility] [address] [place] [address] Suhas Monsalve MD Social History Tobacco Use Types Packs/Day Years Used Date Smoking Tobacco: Never Alcohol Use Standard Drinks/Week Comments Not Asked 0 (1 standard drink = 0.6 oz pur e alcohol) Comments No Sex and Gender Information Value Date Recorded Sex Assigned at Not on file 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 DATE: 04/25/2007 RAMO MAR DATE OF : 1985 AGE: [age] years old Referring Physician: LISANDRO JESUS Referring Clinic: [facility] CURRENT DIAGNOSES 1. Cardiomyopathy, 425.4 ALLERGIES YAW-C ceclor MEDICATIONS (prior to changes made today) CHIEF COMPLAINTS HISTORY OF PRESENT ILLNESS Thanks for sending Ramo Mar to the office today. She is a 22-year-old healthy young woman 27 weeks who has a remarkable history of having Burkitt's treated at the [facility] for six months, stopping about six years ago, with drugs that included Adriamycin, the only one that I am aware of that causes cardiac dysfunction. She was treated at that time without beta blockers or LARS inhibitors and normalized her heart function four years beyond the chemotherapy. She has not had recurrenceof the Burkitt's but now is 27 weeks , and the question has been raised as to whether or not previous cardiomyopathy predisposes to peripartum cardiomyopathy. As far as I know, it does not. On the other hand, if she develops a peripartum cardiomyopathy it might be worse than if she had not had decreased heart function at one point in time. I am not altogether sure that there is a specific therapy to use under these circumstances, or whether beta blockers or LARS inhibitors can be helpful, but certainly LARS inhibitors are contraindicatedin and potentially extremely dangerous, although beta blockers I think are relatively less dangerous. Not many drugs are identified as safe in a setting, although some are used a bit more than others. She feels fine. She has no symptoms to suggest heart disease. She has no risk factors for heart disease. Her systems review did not identify breathlessness, chest pain, palpitations, dizziness or syncope at any point in time. Your past systems review that I have gone over was negative, and she can bring up nothing that sounds worrisome or disconcerting. Her physical examination shows a very faint systolic ejection murmur that likely is flow related. Her mother did have a weak heart when she in her early 50s with ALS, but the etiology of the weak heart is not ultimately clear. PAST HISTORY Past Medical Illnesses: anemia, gall stones, Burkitt's lymphoma, leukemia Surgical Procedures: tonsil and adenoidectomy, thoracotomy, J-tube placement, Wilson catheter placement FAMILY HISTORY: Father - alive and well; Mother - Age 52, and ramesh gehrig's disease; Brother 1 - alive and well; Sister 1 - alive and well; SOCIAL HISTORY Alcohol Use - denies drinking; Smoking - denies tobacco use; Diet - regular diet without modifications; Exercise - 3 days per week, 5 days per week, swimming, walking, of mild intensity and of moderate intensity; Seat Belt Use - always; Residence - lives with ; Place of - [place];Spouse's Occupation - student; REVIEW OF SYSTEMS GENERAL weight gain, r/t INTEGUMENTARY denies any change in hair or nails, rashes, or skin lesions. EYES wears eye glasses/contact lenses, recent rx EARS, NOSE, THROAT, MOUTH denies any hearing loss, epistaxis, hoarseness or difficulty speaking. RESPIRATORY dyspnea with exertion CARDIOVASCULAR negative for chest discomfort, negative for chest pain, negative for palpitations, positive for edema ABDOMINAL denies change in bowel habits, dyspepsia, ulcer disease, hematochezia or melena. GENITOURINARY-FEMALE 27 weeks MUSCULOSKELETAL denies any history of arthritic symptoms or back problems. NEUROLOGICAL recent onset headaches PSYCHIATRIC denies any history of depression, substance abuse or change in cognitive functions. ENDOCRINE Burkitts' lymphoma/leukemia-2000, remission HEMATOLOGICAL/IMMUNOLOGIC medication allergies PHYSICAL EXAMINATION VITAL SIGNS: Blood Pressure: CONSTITUTIONAL cooperative, alert and oriented,well developed, well [...] displaced, no murmurs, gallops or rubs detected. ABDOMEN full and not fully evaluated today PERIPHERAL PULSES pulses full and equal in all extremities, no bruits auscultated. EXTREMITIES & BACK no deformities, clubbing, cyanosis, erythema or edema observed. There are no spinal abnormalities noted. Normal muscle strength and tone. NEUROLOGICAL no gross motor deficits noted, affect appropriate, oriented to time, person and place. MEDICATIONS UPDATED/STARTED TODAY: IMPRESSIONS/PLAN We will obtain an echocardiogram. I will review some of the literature, and she will bring a list of her medications that we can review as well that were taken at one time during the treatment of theBurkitt's. My own bias is that she will do well. Having a baseline echo makes sense and we will arrange for that. If there is some literature that I am not aware of that you might point me at, I would be glad to follow a lead and will do a bit of looking on my own. I will plan to visit with her in a couple of months, perhaps June, prior to her delivery in July. Thanks for sending her. Best of regards. TODAYS ORDERS 1. 2D, color flow, doppler Today 2. F/U with [facility] [employer] 2-4 weeks - prefers alberto 3. Return Visit 2 months Suhas Monsalve M.D. documented in this encounter Plan of Treatment Not on file documented as of this encounter Visit Diagnoses Not on filedocumented in this encounter Care Teams Concert Promoter Relationship Specialty Start Date End Date Eitan Vuong MD PCP - General Family Practice 04/27/11 08/12/12 No Ref-Primary, Physician PCP - General 08/13/12 09/03/14 Jocelyne Alvarado [facility] [address] [place] [address] PCP - General Nurse Practitioner 09/04/14 documented as of this encounter
--- OUTSIDE RECORDS SUMMARY | 2024-07-19 10:22 | XMS_ITS | Encounter Summary ---
Author Organization [place] Address [address] [place] [address] Care Team Providers Care C Python Developer Name Role Phone Jocelyne Alvarado [place] Primary Care Provider [phone] Reason for Referral * Diagnostic Imaging Mammo (Routine) - Pending Review Specialty Diagnoses / Procedures Referred By Flex nolan Referred To Contact Radiology. Diagnoses History of Burkitt's lymphoma History of leukemia Dense breast tissue Procedures MA Diagnostic Bilateral w/Natalie Kilpatrick MD [address] [place] [id number] Phone: tel: fax: Referral ID Status Reason Start Date Expiration Date V isits Requested Visits Authorized [id number] Pending Review 05/14/2024 05/14/2025 1 1 Reason for Visit * Diagnostic Imaging Mammo (Routine) - Pending Review Specialty Diagnoses / Procedures Referred By Flex nolan Referred To Contact Radiology. Diagnoses History of Burkitt's lymphoma History of leukemia Dense breast tissue Procedures MA Diagnostic Bilateral w/[place] [address] [place] [address] Phone: tel: fax: Referral ID Status Reason Start Date Expiration Date V isits Requested Visits Authorized [id number] Pending Review 05/14/2024 05/14/2025 1 1 Encounter Details Date Type Department Care Team (Latest Contact Info) Description 05/23/2024 1:53 PM CDT - 05/23/2024 1:57 PM CDT Hospital Encounter [facility] [address] [facility], [address] [place] [address] Natalie Doty MD [address] [place] [address] History of Burkitt's lymphoma; History [...] on file 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 us Natalie Vines MD IMG MAMMOGRAPH Y ORDERABLES Final Result documented in this encounter Visit Diagnoses Diagnosis History of Burkitt's lymphoma Personal history of other lymphatic and hematopoietic neoplasm History of leukemia Personal history of unspecified leukemia Dense breast tissue documented in this encounter Care Teams C Python Developer Relationship Specialty Start Date End Date Jocelyne Alvarado [facility] [address] [place] [address] PCP - General Nurse Practitioner 09/04/14 documented as of this encounter
--- OUTSIDE RECORDS SUMMARY | 2024-07-19 10:22 | XMS_ITS | Encounter Summary ---
Author Organization [place] Address [facility]0 [facility] [place] [address] Care Team Providers Care Tire Setter Name Role Phone Eitan Vuong MD Primary Care Provider [phone] No Ref-Primary, Physician Primary Care Provider Jocelyne Alvarado Primary Care Provider [phone] Encounter Details Date Type Department Care Team (Late st Contact Info) Description 06/15/2007 Office Visit-[facility] [address] [place] [address] Ashley Santana DO [address] [facility] [address] [place], [place] [id number] Social History Tobacco Use Types Packs/Day Years Used Date Smoking Tobacco: Never Alcohol Use Standard Drinks/Week Comments Not Asked 0 (1 standard drink = 0.6 oz pur e alcohol) Comments No Sex and Gender Information Value Date Recorded Sex Assigned at Not on file 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 #[id number] DATE: 06/15/2007 RAMO MAR DATE OF : 1985 AGE: [age] years old Referring Physician: LISANDRO JESUS Referring Clinic: [facility] CURRENT DIAGNOSES 1. Cardiomyopathy, 425.4 ALLERGIES YAW-C ceclor MEDICATIONS (prior to changes made today) CHIEF COMPLAINTS F/u HISTORY OF PRESENT ILLNESS I had the pleasure of seeing your patient again in the clinic today, . Ramo Mar. She is a 22-year-old pleasant female who is 34 weeks . She has a history of Burkitt's lymphoma, which was treated with chemotherapy including Adriamycin approximately six years ago. This was done at the [facility]. She had transthoracic echocardiograms to evaluate her LV function at that time. She did have LV dysfunction while taking Adriamycin. Therefore, this medication was discontinued. She had serial echocardiograms following and then a four year checkout in 2004 several years after her chemotherapy, which she states she was told that the echo results were normal. However, I do not have a record of these. She was seen in the clinic approximately one month ago due to her and concerns of whether her cardiomyopathy may return during . She had a transthoracic echocardiogram done at that time, which demonstrated mild global hypokinesis of the left ventricle with an ejection fraction of 45% to 50%. She denies any difficulty with palpitations, orthopnea, or PND. She does have shortness of breath, but she relates this more to position and than anything else. She does get winded, but she states that she is able to run up a flight of stairs without difficulty. She denies any chest discomfort. She does have swelling in her lower extremities and hands. Of course,she is 34 weeks and relates this to as well. She has been doing well over the past four or five years. She is considered cured from her Burkitt's lymphoma. This is her first . There was a concern about what type of delivery she should have as well. In the clinic today, her blood pressure is 118/72. Pulse is 80. PAST HISTORY Past Medical Illnesses: anemia, 2000 Burkitt's lymphoma/leukemia (chemo therapy 2000-) Past Cardiac Illnesses: adriamycin induced cardiomyopathy 6 yrs ago Surgical Procedures: tonsil and adenoidectomy, thoracotomy, J-tube [...] - lives with ; Place of - [place];Spouse's Occupation - student; REVIEW OF SYSTEMS GENERAL weight gain, r/t INTEGUMENTARY denies any change in hair or nails, rashes, or skin lesions. EYES wears eye glasses/contact lenses, recent rx EARS, NOSE, THROAT, MOUTH denies any hearing loss, epistaxis, hoarseness or difficulty speaking. RESPIRATORY dyspnea with exertion CARDIOVASCULAR per HPI ABDOMINAL denies change in bowel habits, dyspepsia, ulcer disease, hematochezia or melena. GENITOURINARY-FEMALE 27 weeks MUSCULOSKELETAL denies any history of arthritic symptoms or back problems. NEUROLOGICAL recent onset headaches PSYCHIATRIC denies any history of depression, substance abuse or change in cognitive functions. ENDOCRINE Burkitts' lymphoma/leukemia-2000, remission HEMATOLOGICAL/IMMUNOLOGIC medication allergies PHYSICAL EXAMINATION VITAL SIGNS: Blood Pressure: 118/72 Sitting, Left arm, regular cuff Pulse- 80.00/min. Weight- 198.00 lbs. Height- 56.00 Temperature- .00 CONSTITUTIONAL cooperative, alert and oriented,well [...] no murmurs, gallops or rubs detected. ABDOMEN 34 weeks gestation, normal bowels sound cannot palpate liver or spllen PERIPHERAL PULSES pulses full and equal in all extremities, no bruits auscultated. EXTREMITIES & BACK no cyanosis present, no clubbing present, mild edema to ankles NEUROLOGICAL no gross motor deficits noted, affect appropriate, oriented to time, person and place. MEDICATIONS UPDATED/STARTED TODAY: IMPRESSIONS/PLAN In summary, Ms. Ramo Mar is a pleasant 22-year-old female who is 34 weeks gestation with a history of cardiomyopathy related to chemotherapy medications. I am unsure as to whether this recent echocardiogram that shows mild global hypokinesis with an ejection fraction of 45% to 50% may be her normal. In some young adults (particularly athletic young adults), we do sometimes see a low ejection fraction at rest that quickly picks up with any activity to normal. I do not have a record of her echocardiograms performed at [place]. She may have had a significantly reduced ejection fraction during Adriamycin that recovered to 45% to 50%. However then again, it may be related to her current . We do not have values of an echocardiogram prior to . However regardless of what her baseline ejection fraction is, I do not feel that this is significant enough to impair or create problems with her current or delivery however she delivers. I feel that a vaginal delivery is safe in her. She has no symptoms of heart failure or chest discomfort. She does just have a mild reduction of LV function. I have cautioned her against increased salt and fluid intake with the . She already is in a hypervolemic state, which may add stress to her heart. Any change to warmer weather or humid weather, she may feel the need to increase her fluid intake and salt intake. I have cautioned her against this. Should the weather change, she should stay indoors in the cool and not beexcessive with her fluid intake. I would like Ms. Mar to obtain her records from [place] to determine what her baseline ejection fraction was on her discharge visit from their clinic. Ms. Mar may need medication following her if this is in fact mild LV dysfunction. She will also need a repeat transthoracic echocardiogram following her delivery to determine whether this has worsened or possibly improved. Given the risk to the baby, I do not feel that any medication is warranted currently. Again, I feel that it is safe for her to undergo a normal vaginal delivery. If she does developany symptoms that are concerning, certainly we would be happy to see her during the delivery process. She is planning on delivering at [facility]. If you have any questions regarding her care, please feel free to contact me. I would be happy to answer any questions for you. I would like to see Ms. Mar again following the delivery with a repeat echocardiogram in approximately two months. TODAYS ORDERS 1. 2D, color flow, doppler 2 months 2. Return Visit 2 months Nelsy Santana D.O. documented in this encounter Plan of Treatment Not on file documented as of this encounter Visit Diagnoses Not on filedocumented in this encounter Care Teams Tire Setter Relationship Specialty Start Date End Date Eitan Vuong MD PCP - General Family Practice 04/27/11 08/12/12 No Ref-Primary, Physician PCP - General 08/13/12 09/03/14 Jocelyne Alvarado [facility] [address] [address] PCP - General Nurse Practitioner 09/04/14 documented as of this encounter
== END 2024-07-19 10:20 | disposition home or self-care (01) ==
PROVIDERS: PCP Physician Assistant Medical; Visit Provider Physician Assistant Medical
DX: Z01.818 Encounter for other preprocedural examination (principal)
CPT/HCPCS: 80053; 80061; 84443

== ENCOUNTER 2025-08-28 15:25 | Outpatient (CLI) | payer BC, SELFPAY | END 2025-08-28 15:26 | disposition home or self-care (01) | PROVIDERS: PCP Physician Assistant Medical; Visit Provider Physician Assistant Medical | DX: Z00.00 Encounter for general adult medical examination without abnormal findings (principal) | CPT/HCPCS: 80053; 84443 ==